=== PATIENT | female | born 1990 | race Caucasian/White ===

== ENCOUNTER 2020-01-20 06:00 | Inpatient (IN) | payer OTHER ==
[2020-01-20] MEDS ORDERED: CARBOPROST TROMETHAMINE 250 MCG/ML 1 ML AMP IM PRN (06:16)
[2020-01-20] MEDS ORDERED: TERBUTALINE 1 MG/ML VIAL SQ PRN (06:16)
[2020-01-20] MEDS ORDERED: OXYTOCIN 10 UNIT/ML 1 ML VIAL IM PRN (06:16)
[2020-01-20] MEDS ORDERED: METHYLERGONOVINE 0.2 MG/ML 1 ML AMP IM PRN (06:16)
[2020-01-20] MEDS ORDERED: LIDOCAINE 0.5% (PF) 5 MG/ML (50 ML SDV) SQ PRN (06:16)
[2020-01-20] MEDS ORDERED: OXYTOCIN 30 UNITS/500 ML NS 30 UNIT in SALINE 1 500ML.BAG IV SCH (06:30)
[2020-01-20] MEDS ORDERED: LACTATED RINGERS 1,000 ML IV SCH (06:30)
[2020-01-20 06:43] LABS: Basophils # (A) 0.1 k/uL (0-0.2); Basophils % (A) 1 %; Eosinophils # (A) 0.1 k/uL (0-0.7); Eosinophils % (A) 1 %; HCT 35.2 % (34.0-46.0); HGB 11.6 gm/dL (11.4-16.0); Lymphocytes # (A) 2.5 k/uL (1.0-4.8); Lymphocytes % (A) 19 %; MCH 31.5 pg (25.0-35.0); MCV 95.5 fL (80.0-100.0); Mean Platelet Volume 7.9; Monocytes # (A) 0.7 k/uL (0-1.0); Monocytes % (A) 5 %; Neutrophils # (A) 9.9 k/uL (1.3-7.7); Neutrophils % (A) 74 %; Platelet Count 277 k/uL (150-450); RBC 3.68 m/uL (3.80-5.40); WBC 13.4 k/uL (3.8-10.6)
[2020-01-20] MEDS ORDERED: ROPIVACAINE 5MG/ML 20ML VIAL ONE (08:43)
[2020-01-20] MEDS ORDERED: SODIUM CHLORIDE 0.9% 100 ML BAG ONE (08:43)
[2020-01-20] MEDS ORDERED: fentaNYL (PF) 50 MCG/ML 5 ML AMP ONE (08:43)
--- NOTE | 2020-01-20 09:31 | P.HPOB ---
History of Present Illness H&P Date: 01/20/20 Chief Complaint: Gestational diabetes 39-3/7 weeks gestation This is a 29-year-old 2 para 1 with an estimated due date of 01/23/2020 based on LMP consistent with early ultrasound. She is admitted for induction of labor with a favorable cervix secondary to history of diet-controlled gestational diabetes. Her blood sugars have been well controlled with diet alone and she's been monitored with testing. Her otherwise has been, located by maternal tobacco use although she has cut back during the . Obstetric history significant for previous term normal spontaneous vaginal delivery in 2008 also complicated by gestational diabetes. Laboratory data blood type O+, antibody screen negative, rubella immune, VDRL nonreactive, hepatitis B surface antigen negative, HIV negative, gonorrhea and clinic cultures negative, group B strep negative, 3 hour GTT abnormal. Review of Systems All systems: negative Past Medical History Past Medical History: No Reported History History of Any Multi-Drug Resistant Organisms: None Reported Past Surgical History: Cholecystectomy, Tonsillectomy Additional Past Surgical History / Comment(s): left knee arthroscopy Past Anesthesia/Blood Transfusion Reactions: No Reported Reaction Past Psychological History: No Psychological Hx Reported Smoking Status: Current every day smoker Past Alcohol Use History: None Reported Past Drug Use History: None Reported - Past Family History Mother Family Medical History: Diabetes Mellitus, Hypertension, Thyroid Disorder Father Family Medical History: Cancer Medications and Allergies Home Medications Medication Instructions Recorded Confirmed Type Pnv No.95/Ferrous Fum/Folic AC 1 each PO DAILY 11/14/19 01/20/20 History [ Multivitamin Tablet] Allergies Allergy/AdvReac Type Severity Reaction Status Date / Time codeine AdvReac Intermediate Nausea & Verified 01/20/20 06:16 Vomiting Exam Vital Signs Temp Pulse Resp BP Pulse Ox 01/20/20 06:24 98.1 F 83 16 105/62 97 Intake and Output 01/19/20 01/20/20 01/20/20 22:59 06:59 14:59 Other: Weight 69.4 kg Targeted physical exam is performed: This is a uncomfortable-appearing visibly gravid female. HEENT exam is unremarkable. Her breathing is unlabored and her heart is a regular rate and rhythm. The abdomen is gravid with fundal height consistent with gestational age. On pelvic examination the cervix is 4 cm dilated 50% effaced and the vertex is in the -3 station. Artificial rupture membranes is undertaken and thick meconium-stained fluid is noted. heart tones are currently category 1 and she is zack every 1-3 minutes with Pitocin at 1 mU/m. Results Result Diagrams: 01/20/20 06:35 Abnormal Lab Results - Last 24 Hours (Table) 01/20/20 Range/Units 06:35 WBC 13.4 H (3.8-10.6) k/uL RBC 3.68 L (3.80-5.40) m/uL Neutrophils # 9.9 H (1.3-7.7) k/uL Assessment and Plan (1) 39 weeks gestation of Current Visit: Yes Status: Acute Code(s): Z3A.39 - 39 WEEKS GESTATION OF SNOMED Code(s): 31140002 (2) Gestational diabetes Current Visit: Yes Status: Acute Code(s): O24.419 - GESTATIONAL DIABETES MELLITUS IN , UNSP CONTROL SNOMED Code(s): 72127251 (3) Tobacco abuse Current Visit: Yes Status: Acute Code(s): Z72.0 - TOBACCO USE SNOMED Code(s): 933487593 (4) Meconium in amniotic fluid Current Visit: Yes Status: Acute Code(s): P96.83 - MECONIUM STAINING SNOMED Code(s): 8064613 Plan: 29-year-old 2 para 1 woman admitted at 39-4/7 weeks' gestation for induction of labor secondary to gestational diabetes. There is meconium in the amniotic fluid and this is reviewed with the patient and her . Anticipated events of induction including Pitocin reviewed with the patient and all questions were answered. She may have an epidural anesthetic upon request. status is currently reassuring. I anticipate normal spontaneous vaginal delivery.
[2020-01-20] MEDS ORDERED: IBUPROFEN 600 MG TAB PO PRN (13:29)
[2020-01-20] MEDS ORDERED: diphenhydrAMINE 50 MG/ML 1 ML VIAL IVP PRN ×4 (13:29→19:43)
[2020-01-20] MEDS ORDERED: HYDROCORTISONE 2.5% RECTAL CREAM 30 GM TUBE RECTAL PRN (13:29)
[2020-01-20] MEDS ORDERED: diphenhydrAMINE 50 MG CAP PO PRN ×2 (13:29→19:43)
[2020-01-20] MEDS ORDERED: diphenhydrAMINE 25 MG CAP PO PRN ×2 (13:29→19:43)
[2020-01-20] MEDS ORDERED: BENZOCAINE/MENTHOL SPRAY 1 GM/SPRAY AEROSOL TOPICAL PRN (13:29)
[2020-01-20] MEDS ORDERED: LANOLIN CREAM 5 GM TUBE TOPICAL PRN (13:29)
[2020-01-20] MEDS ORDERED: ZOLPIDEM 5 MG TAB PO PRN ×2 (13:29→19:43)
[2020-01-20] MEDS ORDERED: ACETAMINOPHEN TAB 325 MG TAB PO PRN ×2 (13:29→19:43)
[2020-01-20] MEDS ORDERED: SIMETHICONE 80 MG CHEWABLE PO PRN ×2 (13:29→19:43)
--- NOTE | 2020-01-20 13:29 | P.PROBDLV ---
Vaginal Delivery Note - . Vaginal Delivery Note: Findings: Male infant in the vertex left occiput anterior position with Apgars of 9 at 1 minute and 9 at 5 minutes, nuchal cord 1, thick meconium-stained fluid. EBL 50 mL's. Intact, three-vessel cord placenta with meconium staining noted. No perineal lacerations. Delivery summary: This is a 29-year-old 2 para 1001 woman who is admitted at 39-4/7 weeks gestation for induction of labor secondary to gestational diabetes and favorable cervix. Following admission she underwent artificial rupture of membranes at which time meconium-stained fluid was noted. She was spontaneously zack every 1-3 minutes on her own. Pitocin augmentation was then initiated however she was not increased past 1 mU/m secondary to tachysystole and occasional late appearing heart rate decelerations. The heart rate tracing was category 2 she did continue to have good on variability. She eventually received an epidural anesthetic and did have a rapid progress to complete cervical dilation. She very rapid second stage of labor. She was positioned, prepped and draped in the dorsal modified Brandon position. With maternal effort 1 head rapidly delivered from the left occiput anterior position. Nuchal cord 1 was reduced. The rest the infant was spontaneously delivered onto the field with copious amount of meconium-stained fluid. The nose and mouth were bulb suctioned thoroughly. The was placed on the maternal abdomen. The cord was eventually clamped and cut. Apgars were 9 at 1 minute and 9 at 5 minutes. Weight is pending at the time of this dictation. The perineum was inspected and no lacerations were noted. An intact, three-vessel cord placenta was expressed with maternal effort after approximately 5 minute third stage of labor. The vagina was again inspected no lacerations were noted. The uterus was massaged and was noted to be firm at the level of the umbilicus. EBL is approximate 50 mL's. Both mother and were doing well post delivery in the room.
[2020-01-20] MEDS ORDERED: OXYTOCIN 20 UNITS/1000 ML NS 1,000 ML IV SCH ×2 (13:30→19:45)
[2020-01-20] MEDS ORDERED: SENNOSIDES-DOCUSATE SODIUM 1 EACH TAB PO SCH (20:00)
[2020-01-20] MEDS: IBUPROFEN 600 MG TAB PO PRN (20:33)
[2020-01-20] MEDS: SENNOSIDES-DOCUSATE SODIUM 1 EACH TAB PO SCH (20:38)
[2020-01-21 01:25] VITALS: TEMP 98.2
[2020-01-21] MEDS: IBUPROFEN 600 MG TAB PO PRN ×2 (06:17→12:14)
[2020-01-21 06:55] LABS: Basophils # (A) 0.1 k/uL (0-0.2); Basophils % (A) 0 %; Eosinophils # (A) 0.1 k/uL (0-0.7); Eosinophils % (A) 0 %; HCT 33.6 % (34.0-46.0); HGB 10.7 gm/dL (11.4-16.0); Lymphocytes # (A) 3.4 k/uL (1.0-4.8); Lymphocytes % (A) 20 %; MCH 30.9 pg (25.0-35.0); MCHC 31.9 g/dL (31.0-37.0); Mean Platelet Volume 7.6; Monocytes # (A) 0.9 k/uL (0-1.0); Monocytes % (A) 5 %; Neutrophils # (A) 12.9 k/uL (1.3-7.7); Neutrophils % (A) 73 %; Platelet Count 247 k/uL (150-450); RBC 3.47 m/uL (3.80-5.40); RDW 13.1 % (11.5-15.5); WBC 17.6 k/uL (3.8-10.6)
--- NOTE | 2020-01-21 08:36 | P.DS ---
Providers Date of admission: 01/20/20 06:00 Expected date of discharge: 01/21/20 Attending physician: Violeta Kemp Primary care physician: Stated None - Discharge Diagnosis(es) (1) 39 weeks gestation of Current Visit: Yes Status: Acute (2) Gestational diabetes Current Visit: Yes Status: Acute (3) Tobacco abuse Current Visit: Yes Status: Acute (4) Meconium in amniotic fluid Current Visit: Yes Status: Acute (5) Normal spontaneous vaginal delivery Current Visit: Yes Status: Acute (6) Nuchal cord Current Visit: Yes Status: Acute Hospital Course: This is a 29-year-old 2 now para 2 woman who was admitted at 39-4/7 weeks' gestation for induction of labor secondary to diet-controlled gestational diabetes and a favorable cervix. Following admission she underwent a Pitocin induction of labor. She was actually the readily zack on her own Pitocin was never increased past 1 mU/m. She had meconium in the amniotic fluid. She received an epidural anesthetic. She had category 2 heart tones however did rapidly progress to complete cervical dilation. She went on to deliver a liveborn female infant over an intact perineum with Apgars of 9 at 1 minute and 9 at 5 minutes. There was a nuchal cord 1. Please see the delivery summary for details. The patient's course was unremarkable. By day #1 she was ambulating and voiding without difficulty. She was bottle feeding. Her vital signs were stable. Her lochia was minimal. She was therefore discharged home with routine instructions for care and follow-up. Patient Condition at Discharge: Good Plan - Discharge Summary New Discharge Prescriptions: No Action Pnv No.95/Ferrous Fum/Folic AC [ Multivitamin Tablet] 1 each PO DAILY Discharge Medication List Pnv No.95/Ferrous Fum/Folic AC [ Multivitamin Tablet] 1 each PO DAILY 11/14/19 [History] Follow up Appointment(s)/Referral(s): Violeta Kemp MD [STAFF PHYSICIAN] - 6 Weeks Activity/Diet/Wound Care/Special Instructions: Follow-up in the office in 6 weeks . Call with any concerning signs or symptoms including heavy vaginal bleeding, severe abdominal pain, fever greater than 101, swelling or redness of the lower extremities, foul vaginal discharge, or signs of depression. Nothing in the vagina for 6 weeks after delivery, specifically no intercourse. Discharge Disposition: HOME SELF-CARE
[2020-01-21 10:30] VITALS: BP 93/68; PULSE 86; RESP 18
[2020-01-21] MEDS: SENNOSIDES-DOCUSATE SODIUM 1 EACH TAB PO SCH (10:53)
== END 2020-01-21 14:00 | disposition home or self-care (01) | DRG 807 ==
LOC: 4FBP 06:00
PROVIDERS: ADMIT Obstetrics & Gynecology; ATTEND Obstetrics & Gynecology
PROC: 10907ZC Drainage of Amniotic Fluid, Therapeutic from Products of Conception, Via Natural or Artificial Opening (ICD-10-PCS; principal; 2020-01-20)
PROC: 00HU33Z Insertion of Infusion Device into Spinal Canal, Percutaneous Approach (ICD-10-PCS; principal; 2020-01-20)
PROC: 10E0XZZ Delivery of Products of Conception, External Approach (ICD-10-PCS; principal; 2020-01-20)
PROC: 3E0R3BZ Introduction of Anesthetic Agent into Spinal Canal, Percutaneous Approach (ICD-10-PCS; principal; 2020-01-20)
DX: O24.420 Gestational diabetes mellitus in childbirth, diet controlled (principal); Z37.0 Single live birth; O99.334 Smoking (tobacco) complicating childbirth; F17.210 Nicotine dependence, cigarettes, uncomplicated; O69.81X0 Labor and delivery complicated by cord around neck, without compression, not applicable or unspecified; O76 Abnormality in fetal heart rate and rhythm complicating labor and delivery; O77.0 Labor and delivery complicated by meconium in amniotic fluid; Z3A.39 39 weeks gestation of pregnancy; Z90.49 Acquired absence of other specified parts of digestive tract; Z90.89 Acquired absence of other organs; Z82.49 Family history of ischemic heart disease and other diseases of the circulatory system; Z83.3 Family history of diabetes mellitus; Z80.9 Family history of malignant neoplasm, unspecified; Z83.49 Family history of other endocrine, nutritional and metabolic diseases; Z88.5 Allergy status to narcotic agent
CPT/HCPCS: 85025; 86850; 86900; 86901